=== PATIENT | male | born 1985 | race Hispanic/Latino ===

== ENCOUNTER 2018-09-09 12:21 | Emergency (ER) | payer SELFPAY ==
[2018-09-09] MEDS ORDERED: Adacel (T-DAP) 0.5 ML SYRINGE ONE (12:41)
[2018-09-09] MEDS ORDERED: Lidocaine 1% (PF) 30 ML VIAL ONE (13:15)
[2018-09-09] MEDS ORDERED: Bacitracin Zinc 1 Packet ONE (14:01)
== END 2018-09-09 14:20 | disposition home or self-care (01) ==
LOC: ERS 12:21
DX: S61.211A Laceration without foreign body of left index finger without damage to nail, initial encounter (principal); S61.213A Laceration without foreign body of left middle finger without damage to nail, initial encounter; F17.210 Nicotine dependence, cigarettes, uncomplicated; W29.8XXA Contact with other powered hand tools and household machinery, initial encounter
CPT/HCPCS: 12004; 90471; 90715; J2001

== ENCOUNTER 2018-09-17 09:54 | Emergency (ER) | payer SELFPAY | END 2018-09-17 10:40 | disposition home or self-care (01) | LOC: ERS 09:54 | DX: S61.412D Laceration without foreign body of left hand, subsequent encounter (principal); F17.210 Nicotine dependence, cigarettes, uncomplicated | CPT/HCPCS: 99282 ==

== ENCOUNTER 2018-09-24 08:12 | Emergency (ER) | payer SELFPAY | END 2018-09-24 08:40 | disposition home or self-care (01) | LOC: SCSER 08:12 | DX: S61.312D Laceration without foreign body of right middle finger with damage to nail, subsequent encounter (principal); F17.210 Nicotine dependence, cigarettes, uncomplicated; X58.XXXD Exposure to other specified factors, subsequent encounter | CPT/HCPCS: 99281 ==

== ENCOUNTER 2019-08-17 10:30 | Emergency (ER) | payer SELFPAY ==
--- NOTE | 2019-08-17 11:25 | RAD ---
Exam:Right foot 3 views HISTORY: Pain COMPARISON: 08/21/2008 FINDINGS: Lisfranc alignment is maintained. There is severe degenerative change involving the first m etatarsophalangeal joint space. Loss of joint space height, sclerosis and osteophyte formation is noted. No fracture. 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
== END 2019-08-17 11:55 | disposition home or self-care (01) ==
LOC: ERS 10:30
DX: S90.31XA Contusion of right foot, initial encounter (principal); F17.210 Nicotine dependence, cigarettes, uncomplicated; W20.8XXA Other cause of strike by thrown, projected or falling object, initial encounter

== ENCOUNTER 2021-02-23 19:03 | Emergency (ER) | payer BC | END 2021-02-23 19:09 | disposition left against medical advice (07) | LOC: ERS 19:03 | DX: Z53.21 Procedure and treatment not carried out due to patient leaving prior to being seen by health care provider (principal) ==

== ENCOUNTER 2022-12-07 11:23 | Emergency (ER) | payer BC, SELFPAY | END 2022-12-07 12:40 | disposition home or self-care (01) | LOC: ERS 11:23 | DX: B02.9 Zoster without complications (principal); F17.210 Nicotine dependence, cigarettes, uncomplicated | CPT/HCPCS: 99283 ==

== ENCOUNTER 2022-12-11 10:30 | Emergency (ER) | payer SELFPAY ==
[2022-12-11 11:00] LABS: #Basophils 0.1 thou/uL (0.0-0.2); #Monocytes 0.6 thou/uL (0.11-0.59); #Neutrophils 8.7 thou/uL (1.40-6.50); %Basophils 0.5 % (0.0-1.0); %Eosinophils 0.4 % (0.0-10.0); %Lymphocytes 10.5 % (21.0-51.0); %Neutrophils 82.2 % (42.0-75.0); Hematocrit 45.5 % (42.0-52.0); Hemoglobin 16.1 g/dL (14.0-18.0); Mean Corpuscular HGB CONC 35.4 g/dL (32.0-36.0); Mean Corpuscular Hemoglobin 32.4 pg (27.0-31.0); Mean Corpuscular Volume 91.5 fl (78.0-98.0); Mean Platelet Volume 9.3 fL (7.4-10.4); Platelet Count 282 10x3/uL (130-400); RBC Distribution Width 11.9 % (11.5-14.5); Red Blood Cell (RBC) Count 4.97 mill/uL (4.70-6.10); White Blood Cell (WBC) Count 10.6 10x3/uL (4.8-10.8)
[2022-12-11] MEDS ORDERED: Ketorolac Tromethamine 30 MG/ML VIAL ONE (11:00)
[2022-12-11] MEDS ORDERED: Ondansetron PF 4 MG/2 ML Vial ONE (11:00)
[2022-12-11 11:02] LABS: Bilirubin Negative (Negative); Blood, Urine Trace (Negative); Clarity Clear (Clear); Glucose, Urine (Dipstick) >=1000 mg/dL (Negative); Ketone, Urine Negative (Negative); Leukocyte Negative (Negative); Nitrite Negative (Negative); Protein, Urine (Dipstick) Negative (Neg-Trace); Urobilinogen 0.2 mg/dL (Less than 2); pH, Urine 6.5 (5.0-9.0)
[2022-12-11 11:06] LABS: Bacteria/HPF None Seen HPF (None Seen); CAUTI Indications for Culture Pelvic or flank pain; RBC/HPF None Seen HPF (0-3); Squamous Epithelial 0-3 HPF (0-3); WBC/HPF 0-3 HPF (0-3)
[2022-12-11 11:07] LABS: Urine Culture Reflex No No
[2022-12-11 11:32] LABS: ALT (SGPT) 13 U/L (8-55); AST (SGOT) 11 U/L (5-34); Albumin 4.2 g/dL (3.5-5.0); Alkaline Phosphatase 109 U/L (40-110); Anion Gap 14 mmol/L (10-20); BUN (Urea Nitrogen) 20 mg/dL (8.9-20.6); Calc. Creatinine Clearance 0 mL/min (70-130); Carbon Dioxide 26 mmol/L (22-29); Chloride 94 mmol/L (98-107); Estimated GFR 77; Globulin 3.3 g/dL (2.4-3.5); Lipase 93 U/L (8-78); Potassium 3.8 mmol/L (3.5-5.1); Protein, Total 7.5 g/dL (6.0-8.3); Sodium 130 mmol/L (136-145)
[2022-12-11 11:37] LABS: Glucose 531 mg/dL (70-105)
[2022-12-11 12:11] LABS: Actual Bicarbonate (HCO3v) 25.6 mEq/L (22-28); Base Excess 0.2 mEq/L (-2.0 to +3.0); Calcium, Ionized (venous) 1.07 mmol/L (1.16-1.32); Chloride (VBG) 97 mmol/L (98-106); Hematocrit-VBG 48 % (42.0-52.0); Hemoglobin (Hb) 16.3 g/dL (13.2-17.3); Potassium (VBG) 4.27 mmol/L (3.70-5.30); Sodium 130.2 mmol/L (133-146); pH (venous) 7.385 (7.32-7.43)
[2022-12-11] MEDS ORDERED: Iopamidol-370 76% 500 ML MDV (1 ML CHARGE) ONE (14:10)
== END 2022-12-11 13:02 | disposition home or self-care (01) ==
LOC: ERS 10:30
DX: E11.9 Type 2 diabetes mellitus without complications (principal); F17.210 Nicotine dependence, cigarettes, uncomplicated
CPT/HCPCS: 36415; 74177; 80053; 81001; 82010; 82805; 83690; 85025; 96361; 96374; 96375; J1885; J2405; Q9967